=== PATIENT | female | born 1985 | race Hispanic/Latino ===

== ENCOUNTER 2017-03-06 15:05 | Emergency (ER) | payer OTHER ==
[~2017-03-06] VITALS: Ht 160 cm; Wt 65.3 kg
[~2017-03-06 15:05] MED LIST: COLA100C3 PO; FERR325T3 PO; IBUP60TA PO; PERCOCET PO; VITAPRTA PO
[2017-03-06 15:10] VITALS: BP 117/71
[2017-03-06] MEDS ORDERED: PRED20TA PO (15:24)
[2017-03-06] MEDS ORDERED: AUGM875T27 PO (15:24)
[2017-03-06] MEDS ORDERED: GUAISYP5 PO (15:24)
== END 2017-03-06 15:48 | disposition home or self-care (01) ==
LOC: M ED 15:40
DX: J32.0 Chronic maxillary sinusitis (principal); H66.93 Otitis media, unspecified, bilateral

== ENCOUNTER 2017-12-06 16:24 | Emergency (ER) | payer OTHER ==
[2017-12-06] MEDS: IBUPROFEN 800 MG TAB PO (18:05)
[2017-12-06] MEDS: NORCO, ANEXSIA 5/325MG TABLET (HYDROcodone/ACETAMINOPHEN) PO ×2 (18:05→18:12)
== END 2017-12-06 18:14 | disposition home or self-care (01) ==
LOC: M ED 16:24
DX: J02.9 Acute pharyngitis, unspecified (principal); Z79.2 Long term (current) use of antibiotics; Z79.52 Long term (current) use of systemic steroids
CPT/HCPCS: 87880

== ENCOUNTER → 2018-01-30 | Outpatient (REF) | payer OTHER ==
[2018-01-31 09:10] LABS: CHLAMYDIA DNA AMPLIFICATION NEGATIVE (NEGATIVE); GC DNA AMPLIFICATION NEGATIVE (NEGATIVE)
== END ==
LOC: M SFHCLERA 16:46
DX: R30.0 Dysuria (principal)

== ENCOUNTER → 2018-04-10 | Outpatient (REF) | payer OTHER | LOC: M SFHCLERA 19:07 | DX: J30.9 Allergic rhinitis, unspecified (principal) ==

== ENCOUNTER 2018-10-30 08:47 | Emergency (ER) | payer OTHER ==
[~2018-10-30] VITALS: Ht 160 cm; Wt 67.7 kg
[2018-10-30 08:47] VITALS: BP 123/78
[~2018-10-30 08:47] MED LIST changes: +AUGM875T28 PO; -COLA100C3 PO; +COLA100C5 PO; +GUAISYP5 PO; +PRED20TA PO
--- NOTE | 2018-10-30 10:09 | REP ---
Left humerus: Two views. History: Pain after fall. Findings: The left elbow and glenohumeral and acromioclavicular joints are normally aligned. No fracture or subluxation is seen. Impression: No fracture noted. Electronically Signed by Natan Lancaster MD 10/30/2018 10:01 A
--- NOTE | 2018-10-30 10:11 | REP ---
Pelvis, left hip: Three views. History: Pain after fall. Findings: Bony pelvic ring is intact. Visualized bowel gas pattern is normal. No hip fracture or pelvic fracture is seen. No sacral fracture is noted. Femoral head is smooth and rounded. Periarticular soft tissues are unremarkable. Impression: No fracture noted. Electronically Signed by Natan Lancaster MD 10/30/2018 11:50 A
--- NOTE | 2018-10-30 10:13 | REP ---
Lumbar spine series: Five views. History: Pain after fall. Findings: Lumbar vertebral body heights are preserved. Alignment is normal. No fracture or collapse is seen. Pedicles and posterior elements are intact. Disc spaces are maintained. Impression: Negative lumbar spine series. Electronically Signed by Natan Lancaster MD 10/30/2018 10:05 A
[2018-10-30] MEDS ORDERED: NORCO, ANEXSIA 5/325MG TABLET (HYDROcodone/ACETAMINOPHEN) PO ONE (10:15)
[2018-10-30] MEDS ORDERED: NORCOTAB PO (10:19)
== END 2018-10-30 10:34 | disposition home or self-care (01) ==
LOC: M ED 08:47
DX: S70.02XA Contusion of left hip, initial encounter (principal); S40.022A Contusion of left upper arm, initial encounter; M54.5 Low back pain; W00.0XXA Fall on same level due to ice and snow, initial encounter; Y92.410 Unspecified street and highway as the place of occurrence of the external cause

== ENCOUNTER 2018-11-05 12:47 | Emergency (ER) | payer OTHER ==
[~2018-11-05] VITALS: Ht 160 cm; Wt 66.8 kg
[2018-11-05 12:47] VITALS: BP 157/82
[~2018-11-05 12:47] MED LIST changes: +NORCOTAB PO
[2018-11-05] MEDS ORDERED: IBUP-1022 PO (13:38)
[2018-11-05] MEDS ORDERED: ZANA4CAP PO (13:38)
== END 2018-11-05 14:03 | disposition home or self-care (01) ==
LOC: M ED 12:47
DX: S30.0XXD Contusion of lower back and pelvis, subsequent encounter (principal); W00.0XXD Fall on same level due to ice and snow, subsequent encounter; Y92.89 Other specified places as the place of occurrence of the external cause

== ENCOUNTER → 2020-12-14 | Outpatient (CLI) | payer SELFPAY ==
[~2020-12-14] MED LIST changes: +HYDR-3715 PO; +IBUP-1022 PO; +IBUP600T42 PO; -IBUP60TA PO; -NORCOTAB PO; +ZANA4CAP PO
== END ==
LOC: M LABSMTC 11:46
PROVIDERS: ATTEND Pediatrics
DX: Z20.822 Contact with and (suspected) exposure to COVID-19 (principal)